=== PATIENT | male | born 1965 | race Caucasian/White ===

== ENCOUNTER 2025-02-15 15:34 | Emergency (ER) | payer BC ==
[~2025-02-15] VITALS: Ht 180.3 cm; Wt 94.8 kg
[2025-02-15] MEDS ORDERED: NAPR500T6 PO (18:28)
[2025-02-15] MEDS ORDERED: DULO20CA19 PO (18:41)
[2025-02-15] MEDS ORDERED: SACU1TAB PO (18:41)
[2025-02-15] MEDS ORDERED: PANT40TA49 PO (18:41)
[2025-02-15 22:15] VITALS: BP 117/64; O2SAT 97
== END 2025-02-15 22:15 | disposition home or self-care (01) ==
LOC: ER 15:42
DX: S76.811A Strain of other specified muscles, fascia and tendons at thigh level, right thigh, initial encounter (principal); E78.5 Hyperlipidemia, unspecified; G89.29 Other chronic pain; K21.9 Gastro-esophageal reflux disease without esophagitis; M25.551 Pain in right hip; M25.561 Pain in right knee; Z79.899 Other long term (current) drug therapy; Z88.0 Allergy status to penicillin; Z94.0 Kidney transplant status; Z96.641 Presence of right artificial hip joint; X58.XXXA Exposure to other specified factors, initial encounter; Y93.89 Activity, other specified; Y92.89 Other specified places as the place of occurrence of the external cause; Y99.8 Other external cause status
CPT/HCPCS: 73502; 73562; 73700; A4606; A4663